=== PATIENT | female | born 2000 | race Two or more races ===

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

== ENCOUNTER 2022-12-28 16:25 | Emergency (ER) | payer OTHER, SELFPAY ==
--- NOTE | ~2022-12-28 | US_ITS ---
EXAMINATION: US PELVIS CLINICAL INFORMATION: Vaginal bleeding. Pain. COMPARISON: Previous exam March 2020 TECHNIQUE: Ultrasound of the pelvis is performed using both transabdominal and transvaginal transducers along with Doppler. Transvaginal imaging is performed due to inadequate visualization transabdominally. FINDINGS: The uterus is anteverted and measures 6 x 3 x 3.6 cm in dimension. No focal lesion is seen. Endometrial thickness is normal measuring 0.2 cm. The ovaries are normal. The right ovary measures 2.6 x 2.6 x 2 cm. Left ovary measures 2.7 x 1 x 1 cm. Arterial and venous flow is documented to both ovaries. There is no evidence of torsion. There is no fluid in the pelvis. US/US pelvic ovarian doppler IMPRESSION: Unremarkable exam.
--- NOTE | ~2022-12-28 | US_ITS ---
EXAMINATION: US PELVIS CLINICAL INFORMATION: Vaginal bleeding. Pain. COMPARISON: Previous exam March 2020 TECHNIQUE: Ultrasound of the pelvis is performed using both transabdominal and transvaginal transducers along with Doppler. Transvaginal imaging is performed due to inadequate visualization transabdominally. FINDINGS: The uterus is anteverted and measures 6 x 3 x 3.6 cm in dimension. No focal lesion is seen. Endometrial thickness is normal measuring 0.2 cm. The ovaries are normal. The right ovary measures 2.6 x 2.6 x 2 cm. Left ovary measures 2.7 x 1 x 1 cm. Arterial and venous flow is documented to both ovaries. There is no evidence of torsion. There is no fluid in the pelvis. US/US pelvic and transvaginal IMPRESSION: Unremarkable exam.
[2022-12-28 17:05] VITALS: BP 112/95; PULSE 84; RESP 18; TEMP 37.2; O2SAT 100; BMI 29.3
--- NOTE | 2022-12-28 17:06 | ED.PREGNANCY ---
HPI - General Chief complaint: Vaginal Bleeding Stated complaint: vaginal bleeding x3wks Time Seen by Provider: 12/28/22 21:58 Source: patient Mode of arrival: ambulatory Limitations: no limitations History of Present Illness HPI Narrative: 22-year-old female presents to ED for 3 weeks of intermittent vaginal bleeding. Patient states she is on control. Patient states also slight abdominal cramping. Patient states this is new having bleeding for 3 weeks while on control patches. Patient denies any recent traumatic rough sexual activity. Patient states no fever or chills. Related Data Allergies Allergy/AdvReac Type Severity Reaction Status Date / Time No Known Allergies Allergy Unverified 01/04/20 17:54 [No Known Allergies*] Review of Systems Review of Systems: Abdominal cramping, vaginal bleeding 3 weeks on control Yes all other systems are reviewed and are negative [facility] Social History Social History Advance Directives: No Advance Directives Information Provided: Yes Physical Exam Vital Signs: Vital Signs: Last Vital Signs Temp 97.7 F 12/28/22 23:59 Pulse 83 12/28/22 23:59 Resp 16 12/28/22 23:59 BP 122/80 12/28/22 23:59 Pulse Ox 97 12/28/22 23:59 O2 Del Method Room Air 12/28/22 23:59 BMI result Body Mass Index 29.3 Const: General: cooperative, healthy appearing, comfortable, no acute distress, well developed, alert, awake and Physically active Orientation/consciousness: oriented to person, oriented to place, oriented to time and patient oriented x3 HEENT: Head: Yes normal to inspection, Yes No palpable skull fracture present, Yes normocephalic, Yes atraumatic and No abrasion Eyes: General: appearance normal, both eyes and all related structures Neck: Neck: Yes normal visual inspection, Yes full ROM, Yes no lymphadenopathy, Yes no meningeal signs, Yes trachea midline, Yes supple, No anterior neck swelling and No tender Chest: Chest palpation & inspection: normal inspection of the chest and normal palpation of entire chest wall Resp: Effort & Inspection: normal respiratory effort and able to speak in complete sentences Auscultation: clear to auscultation bilaterally Cardio: Jugular venous distension: no JVD Heart sounds: S1 normal heart sound present and S2 normal heart sound present GI: Inspection: Yes normal to inspection and No abdominal wall ecchymosis Palpation (GI): Soft to palpation, not firm, nontender, no guarding and not rigid : Other: Refused pelvic exam General: No CVA tenderness and Yes no CVA tenderness Back/Spine/Pelvis: Back: no CVA tenderness, No CVA tenderness and No back tenderness Skin: General skin exam: no rashes or lesions noted, elasticity normal and turgor normal Neuro: General: oriented to person, oriented to place, oriented to time, patient oriented x3, gait normal, tone normal, moves all extremities, Normal light touch and pain sensation, no meningeal signs, no focal motor deficits, CN's II-XI intact bilaterally and normal sensation to monofilament Extrem: General: Yes normal to inspection and Yes full ROM Psych: Appearance: grossly normal, well kempt and not disheveled Course Course Course Narrative: RME - 22 yo female G0 presenting to the ER for evaluation of 3 weeks of intermittent vaginal bleeding. She is on control patches and usually doesn't bleed when she is on the patch. Using 2-4 pads per day. Reporting severe uterine cramping which is not usual for her. No vaginal discharge. Called her doctor at the clinic who told her to come to the ER. Plan: labs, r/o Medical Decision Making Medical Decision Making MDM Narrative: 22-year-old female presents to ED for 3 weeks of vaginal bleeding while on control pills. Patient states mild lower abdominal cramping. Patient denies any recent trauma, or any recent rough unprotected sexual activity. Patient denies any nausea or vomiting. Patient states no fever or chills. 11:48pm: Patient labs are normal. Patient is hemodynamically stable. Patient ultrasound negative for fibroids, ovarian cyst, or torsion. Patient refused pelvic exam and preferred to follow-up with her OBGYN. Patient herself denies hemorrhagic bleeding. Patient was informed necessity to perform pelvic exam to make sure there is no hemorrhagic bleeding or signs of STI. the patient states she will follow-up with her OBGYN. Patient stable. Patient to be discharged Differential Diagnosis Differential Diagnoses: The differential diagnosis associated with the presentation includes (Ectopic , threatened , ovarian cyst rupture, fibroids, dysfunctional uterine bleeding) Admission/Observation Consideration of admission/observation: Escalation of care including admission/observation considered Lab Data 12/28/22 17:21 12/28/22 17:21 Labs: Lab Results 12/28/22 12/28/22 Range/Units 17:19 17:21 WBC 6.2 (4.8-10.8) X10*3/uL RBC 5.00 (4.20-5.50) X10*6/uL Hgb 14.2 (12.0-16.0) g/dl Hct 42.4 (37.0-47.0) % MCV 84.8 (80.0-98.0) fL MCH 28.4 (27.0-33.0) pg MCHC 33.5 (31.0-35.0) g/dl RDW 12.6 (11.0-16.0) % Plt Count 200 (160-400) X10*3/uL MPV 10.7 (9.4-12.3) fL Immature Gran % (Auto) 0.8 H (0.0-0.4) % Neut % (Auto) 48.4 (45-73) % Lymph % (Auto) 36.6 (20-40) % [place] % (Auto) 12.4 H (2-11) % Eos % (Auto) 1.5 (0-4) % Baso % (Auto) 0.3 (0-2) % Lymph # (Auto) 2.3 (1.2-4.9) X10*3/uL [place] # (Auto) 0.8 (0.1-1.2) X10*3/uL Eos # (Auto) 0.1 (0.0-0.4) X10*3/uL Baso # (Auto) 0.0 (0.0-0.2) X10*3/uL Abs Immat Gran (auto) 0.05 H (0.00-0.03) X10*3/uL Absolute Neuts (auto) 3.0 (2.0-8.3) x10*3/uL Absolute Nucleated RBC 0.000 (0.0-0.012) X10*3/uL Nucleated RBC % (auto) 0.0 (0.0-0.2) /100WBC Sodium 141 (135-145) mmol/L Potassium 3.9 (3.3-5.1) mmol/L Chloride 107 (96-108) mmol/L Carbon Dioxide 27 (22-29) mmol/L Anion Gap 11 L (12-20) BUN 12 (9-16) mg/dL Creatinine 0.68 (0.5-1.4) mg/dL Estim Creat Clear Calc 117.3 Estimated GFR > 60 Random Glucose 75 (60-115) mg/dL Calcium 9.7 (8.4-10.2) mg/dL Magnesium 2.0 (1.6-2.6) mg/dL Total Bilirubin 0.3 (0.0-1.0) mg/dL Direct Bilirubin 0.1 (0.0-0.5) mg/dL AST 18 (5-31) U/L ALT 14 (0-31) U/L Alkaline Phosphatase 58 (39-117) U/L Total Protein 7.4 (6.5-8.0) g/dL Albumin 4.3 (3.5-5.0) g/dL Beta HCG, Quant < 2 mIU/mL Urine Color Yellow Urine Appearance Clear Urine pH 7.5 (5.0-9.0) Ur Specific [place] 1.010 (1.005-1.025) Urine Protein Negative (Neg-Trace) mg/dL Urine Glucose (UA) Negative (Negative) mg/dL Urine Ketones Negative (Negative) mg/dL Urine Blood Large (3+) H (Negative) Urine Nitrite Negative (Negative) Ur Leukocyte Esterase Trace H (Negative) Urine RBC 11-20 H (0-2) /HPF Urine WBC 0-5 (0-5) /HPF Ur Squamous Epith Cells 0-2 (0-2) /HPF Urine Bacteria None Seen (None Seen) Hyaline Casts 0-2 (0-2) /LPF Urine Test NEGATIVE (NEGATIVE) Independent Interpretation I performed an independent interpretation of an: Ultrasound Radiology Impression Discussion of test interpretation with radiology: I have reviewed the radiologist's reading. External Record Review External record reviewed: Other (Prior ED viist) Prescription Management I considered prescription management with: Pain Medication Discharge Plan Discharge Clinical Impression: Vaginal bleeding Patient Disposition: Home, Self-Care Instructions: Dysfunctional Uterine Bleeding (ED) Additional Instructions: Return to the ED for any worsening abdominal cramping, profuse vaginal bleeding, flank pain, fever, chills, nausea, vomiting, chest pain, weakness, dizziness, passing out, or any other concerning symptoms. Please follow-up with your OBGYN. Stand Alone Forms: Work/School Release Discharge Date/Time: 12/29/22 00:00 Print Language: Zambian
[2022-12-28 17:25] LABS: MANUAL DIFF FLAG NO
[2022-12-28 17:26] LABS: Basophils Percent Auto 0.3 % (0-2); Eosinophils Absolute Auto 0.1 X10*3/uL (0.0-0.4); Eosinophils Percent Auto 1.5 % (0-4); Hematocrit 42.4 % (37.0-47.0); Hemoglobin 14.2 g/dl (12.0-16.0); Imm Gran Abs Auto 0.05 X10*3/uL (0.00-0.03); Imm Gran Pct Auto 0.8 % (0.0-0.4); Lymphocytes Absolute Auto 2.3 X10*3/uL (1.2-4.9); Lymphocytes Percent Auto 36.6 % (20-40); Mean Corpuscular HGB Conc 33.5 g/dl (31.0-35.0); Mean Corpuscular Hemoglobin 28.4 pg (27.0-33.0); Mean Corpuscular Volume 84.8 fL (80.0-98.0); Mean Platelet Volume 10.7 fL (9.4-12.3); Monocytes Absolute Auto 0.8 X10*3/uL (0.1-1.2); Monocytes Percent Auto 12.4 % (2-11); Neutrophils Percent Auto 48.4 % (45-73); Platelet Count 200 X10*3/uL (160-400); Red Cell Distribution Width 12.6 % (11.0-16.0); White Blood Count 6.2 X10*3/uL (4.8-10.8)
[2022-12-28 17:29] LABS: Appearance Urine Clear; Color Urine Yellow; Glucose Urine UA Negative (Negative); Leukocyte Esterase Urine Trace (Negative); Nitrite Urine Negative (Negative); PH 7.5 (5.0-9.0); UMIC TRIGGER UACC YES; Urine Blood Large (3+) (Negative); Urine Ketones Negative (Negative); Urine Protein Negative (Neg-Trace)
[2022-12-28 17:35] LABS: Bacteria Urine None Seen (None Seen); Hyaline Casts Urine 0-2 /LPF (0-2); Squamous Epithelial Cell Urine 0-2 /HPF (0-2); WBC Urine 0-5 /HPF (0-5)
[2022-12-28 17:51] LABS: Alanine Aminotransferase 14 U/L (0-31); Albumin Level 4.3 g/dL (3.5-5.0); Alkaline Phosphatase 58 U/L (39-117); Anion Gap 11 (12-20); Aspartate Amino Transferase 18 U/L (5-31); Bilirubin Direct 0.1 mg/dL (0.0-0.5); Bilirubin Total 0.3 mg/dL (0.0-1.0); Blood Urea Nitrogen 12 mg/dL (9-16); Calcium 9.7 mg/dL (8.4-10.2); Carbon Dioxide 27 mmol/L (22-29); Chloride 107 mmol/L (96-108); Creatinine Clr Calc Pharmacy 117.3; Estimated Glomerular Filt Rate > 60; Glucose Random 75 mg/dL (60-115); HCG Quantitative < 2 mIU/mL; Potassium 3.9 mmol/L (3.3-5.1); Sodium 141 mmol/L (135-145); Total Protein 7.4 g/dL (6.5-8.0)
[2022-12-28 22:16] LABS: UPreg QC Valid YES; Urine Pregnancy NEGATIVE (NEGATIVE)
[2022-12-28 23:59] VITALS: BP 122/80; PULSE 83; RESP 16; TEMP 36.5; O2SAT 97
--- NOTE | 2022-12-29 | PC.NURSE ---
Patient given discharge instructions, AOx4 and pleasant upon discharge. Education provided, patient exited facility with steady gait
== END 2022-12-29 | disposition home or self-care (01) ==
PROVIDERS: Physician Assistant; Emergency Provider Emergency Medicine; PCP Family Medicine
DX: N93.9 Abnormal uterine and vaginal bleeding, unspecified (principal); R10.2 Pelvic and perineal pain; Z79.899 Other long term (current) drug therapy
CPT/HCPCS: 36415; 76830; 76856; 80048; 80076; 81001; 81025; 83735; 84702; 85025; 93975; 99283; 99284

== ENCOUNTER 2023-04-08 09:59 | Outpatient (REF) | payer OTHER, SELFPAY ==
[2023-04-08 11:56] LABS: Estimated Average Glucose 105 mg/dL; Hemoglobin A1c % 5.3 % (<6.0)
[2023-04-08 12:01] LABS: Hematocrit 45.8 % (37.0-47.0); Hemoglobin 15.2 g/dl (12.0-16.0); Mean Corpuscular HGB Conc 33.2 g/dl (31.0-35.0); Mean Corpuscular Hemoglobin 28.4 pg (27.0-33.0); Mean Corpuscular Volume 85.6 fL (80.0-98.0); Mean Platelet Volume 12.1 fL (9.4-12.3); Platelet Count 156 X10*3/uL (160-400); Red Blood Count 5.35 X10*6/uL (4.20-5.50); Red Cell Distribution Width 12.6 % (11.0-16.0); White Blood Count 4.5 X10*3/uL (4.8-10.8)
[2023-04-08 12:09] LABS: Alanine Aminotransferase 29 U/L (0-31); Albumin Level 4.3 g/dL (3.5-5.0); Alkaline Phosphatase 53 U/L (39-117); Anion Gap 13 (12-20); Aspartate Amino Transferase 26 U/L (5-31); Bilirubin Direct 0.1 mg/dL (0.0-0.5); Bilirubin Total 0.3 mg/dL (0.0-1.0); Blood Urea Nitrogen 12 mg/dL (9-16); Calcium 9.4 mg/dL (8.4-10.2); Carbon Dioxide 25 mmol/L (22-29); Chloride 107 mmol/L (96-108); Cholesterol 169 mg/dL (<200); Estimated Glomerular Filt Rate > 60; Glucose Random 90 mg/dL (60-115); HDL Cholesterol 63 mg/dL (>40); LDL Cholesterol Calculated 93 mg/dL (<100); Sodium 141 mmol/L (135-145); Total Protein 7.4 g/dL (6.5-8.0); Triglycerides 66 mg/dL (<150)
[2023-04-08 12:35] LABS: Free T4 (Free Thyroxine) 0.89 ng/dL (0.71-1.85); Thyroid Stimulating Hormone 0.68 uIU/mL (0.32-4.0); Vitamin D 25-OH Total 50.4 ng/mL (>30)
[2023-04-08 12:42] LABS: HBS Num1 0.35 mIU/mL (0-7.99); HBsAGNum1 0.47 S/CO (0.00-0.99); HIV AB/AG Nonreactive (Nonreactive); HIV Num 1 0.07 S/CO (0.00-0.99); Hepatitis B Surface Antigen Negative (Negative); ~HepC Num1 0.13 S/CO (0.00-0.79); ~Hepatitis B Surface Antibody NONREACTIVE (Nonreactive); ~Hepatitis C Antibody Nonreactive (Nonreactive)
[2023-04-08 14:15] LABS: CT PCR NOT DETECTED (Not Detect.); NG PCR NOT DETECTED (Not Detect.)
[2023-04-09 17:04] LABS: RPR Rapid Plasma Reagin NON-REACTIVE (NON-REACTIVE)
== END 2023-04-08 10:00 | disposition home or self-care (01) ==
LOC: HO.HHCL 09:59
PROVIDERS: Visit Provider Family Medicine
DX: E55.9 Vitamin D deficiency, unspecified (principal); Z20.2 Contact with and (suspected) exposure to infections with a predominantly sexual mode of transmission
CPT/HCPCS: 0353U; 36415; 80048; 80061; 80076; 82306; 83036; 84439; 84443; 85027; 86592; 86706; 86803; 87340; 87389

== ENCOUNTER 2023-04-16 10:47 | Outpatient (REF) | payer SELFPAY ==
--- NOTE | ~2023-04-16 | US_ITS ---
EXAMINATION: US DIAGNOSTIC ULTRASOUND BREAST, LEFT CLINICAL INFORMATION: 22-year-old female complaining of left breast pain 1 - 2 months, no injury. Patient states pain is superolateral and medial, left breast, approximately 12:00 to 9:00 axis. COMPARISON: None available. TECHNIQUE: Ultrasound of the left breast is performed with real-time hyatt scale imaging and color Doppler. The left breast was scanned from the 12-9 o'clock axis. FINDINGS: There is no focal suspicious finding. There is no solid mass, architectural abnormality, duct ectasia, or edema in the soft tissue planes. There is no cystic abnormality. There is no abnormal shadowing. Only normal heterogeneously dense breast parenchyma is identified. US/US breast LT limited mamm only IMPRESSION: No ultrasonographic abnormality within the left breast to explain left breast pain. Recommend clinical management. ASSESSMENT: BI-RADS 1: Negative RECOMMENDATION: 1. Patient should be managed based on the clinical impression. This patient's information was entered into a reminder system with a target due date for their next mammogram.
== END 2023-04-16 10:48 | disposition home or self-care (01) ==
LOC: HO.MAMMO 10:47
PROVIDERS: PCP Family Medicine; Visit Provider Family Medicine
DX: N64.4 Mastodynia (principal)
CPT/HCPCS: 76642

== ENCOUNTER → 2023-04-16 11:00 | Outpatient (BNV) | payer OTHER, SELFPAY | PROVIDERS: PCP Family Medicine; Visit Provider Radiology Diagnostic Radiology | DX: R92.8 Other abnormal and inconclusive findings on diagnostic imaging of breast (principal) | CPT/HCPCS: 76642 ==

== ENCOUNTER 2024-02-14 15:31 | Outpatient (REF) | payer SELFPAY ==
[2024-02-14 16:55] LABS: HCG Quantitative 1963 mIU/mL
== END 2024-02-14 15:32 | disposition home or self-care (01) ==
LOC: HO.HHCL 15:31
PROVIDERS: Visit Provider Family Medicine
DX: Z34.90 Encounter for supervision of normal pregnancy, unspecified, unspecified trimester (principal)
CPT/HCPCS: 36415; 84702

== ENCOUNTER 2024-02-28 15:21 | Outpatient (REF) | payer BC, SELFPAY ==
[2024-02-28 17:03] LABS: HCG Quantitative 61201 mIU/mL
== END 2024-02-28 15:22 | disposition home or self-care (01) ==
LOC: HO.LAB 15:21
PROVIDERS: PCP Family Medicine; Visit Provider Advanced Practice Midwife
DX: Z34.90 Encounter for supervision of normal pregnancy, unspecified, unspecified trimester (principal)
CPT/HCPCS: 36415; 84702

== ENCOUNTER 2024-03-02 08:54 | Outpatient (AMB) | payer BC, SELFPAY ==
--- NOTE | 2024-03-02 09:33 | A.OFFVIS_ITS ---
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 G1. Denies any medical or surgical history. BHCG done on 02/28/24= 6102, LMP December unsure of the date. Denies vaginal bleeding, had pelvic discomfort which has resolved. Admits to nausea, able to eat, taking vitamins and hydrating well. She reports she was attempting to get an appointment at [facility] in the [facility] but was told the wait list to get in was in May. [facility] Medical History Early stage of Family History Mother No problems noted. Social History Household Members: Spouse Housing: Apartment Alcohol intake: former Patient Tobacco Use Status: Never used Tobacco e-Cigarette/Vaping Use: Never Used Female Reproductive History Menstrual Age of Menarche: 13 Duration of menses: 6-7 days control method: none Total pregnancies: 1 Review of Systems Const All systems reviewed & are unremarkable except as noted in HPI and below Endo Reports no additional complaints Physical Exam Vital Signs: Last Vital Signs BP 102/58 L 03/02/24 10:55 BMI result Body Mass Index 29.3 Const General: cooperative, healthy appearing and no acute distress Psych Appearance: well kempt Attitude: cooperative Thought process: Normal thought process present Assessment & Plan Assessment & Plan (1) Early stage of : Code(s): Z34.90 - Encounter for supervision of normal , unspecified, unspecified trimester Category: Medical Plan Discussed: Lab results, plan OB ultrasound to check heart rate and development. Reviewed care and delivery options for the [facility] and nearby sites including: [facility], [place], [facility]. Patient took information to look at all options. Rx for B6 vitamin reviewed fluid and food intake. Continue with the well- balanced healthy diet and adequate fluid intake. Continue with vitamins. Advised to call if unable to keep food or fluids down, vaginal bleeding, pelvic pain. Plan follow up after ultrasound findings to determine EDC, then nurse intake, and OB physical if decides to stay within our practice. Orders: Orders US OB <= 14 weeks fetus Today Z34.90 - Encounter for supervision of normal , unspecified, unspecified trimester Medications: New pyridoxine (vitamin B6) 25 mg PO TID PRN 90 tabs 0RF nausea and vomiting Coding Level of Care Code New Pt Level 3 (29838) Diagnoses Early stage of Z34.90
[2024-03-02 10:55] VITALS: BP 102/58; BMI 29.3
== END 2024-03-02 10:16 | disposition home or self-care (01) ==
PROVIDERS: PCP Family Medicine; Visit Provider Advanced Practice Midwife
DX: Z34.90 Encounter for supervision of normal pregnancy, unspecified, unspecified trimester (principal)
CPT/HCPCS: 99203

== ENCOUNTER 2024-03-07 15:35 | Outpatient (REF) | payer BC, SELFPAY ==
--- NOTE | ~2024-03-07 | US_ITS ---
EXAMINATION: US OBSTETRICAL ULTRASOUND CLINICAL INFORMATION: . COMPARISON: None available. LMP: Not known. Gestational age by maternal dates is not known. Estimated date of delivery by maternal dates is not known. TECHNIQUE: Both transabdominal and endovaginal scanning was performed. FINDINGS: There are 2 intrauterine gestational sacs. SAC A: Yolk sac is identified along with a pole HR: 160 beats per minute. CRL (crown rump length): 1.42 cm (7 weeks 6 days +/- 4 days). JAYLAN (estimated date of delivery): 10/18/2024 +/- 4 days. SAC B: A gestational sac is present but no pole or yolk sac is seen. HR: None seen. CRL (crown rump length): None seen. Yolk Sac: None seen. MATERNAL ADNEXA: The right maternal ovary measures 2.6 x 2.4 x 2.2 cm. A corpus luteal cyst is present measuring 1.9 cm. The left maternal ovary measures 2.3 x 0.9 x 0.9 cm. There is no significant maternal adnexal mass. No maternal pelvic ascites. US/US OB pelvic and transvaginal IMPRESSION: 2 gestational sacs are present only one of which has a pole with gestational age estimated at 7 weeks 6 days with an JAYLAN of 10/18/2024. Electronically signed by: Juan Olguin MD 03/28/2024 11:24 PM [facility]
== END 2024-03-07 15:36 | disposition home or self-care (01) ==
LOC: HO.US 15:35
PROVIDERS: PCP Family Medicine; Visit Provider Advanced Practice Midwife
DX: O30.091 Twin pregnancy, unable to determine number of placenta and number of amniotic sacs, first trimester (principal); O28.3 Abnormal ultrasonic finding on antenatal screening of mother; Z3A.01 Less than 8 weeks gestation of pregnancy
CPT/HCPCS: 76801; 76802; 76817